=== PATIENT | female | born 1995 | race African-American/Black ===

== ENCOUNTER 2016-12-25 10:03 | Emergency (ER) | payer OTHER ==
[~2016-12-25] VITALS: Ht 160 cm; Wt 84.0 kg
[~2016-12-25 10:03] MED LIST: ELITE OB DHA S1 EACH PO; IBUPROFEN800 MG PO; KEFLEX500 MG PO; MACROBID100 MG PO; NOHOMEMEDS; PEPCID20 MG PO; PROVENTIL HFA6.7 GM IH; PYRIDIUM100 MG PO
[2016-12-25] MEDS ORDERED: ATARAX,VISTARIL25 MG PO (11:49)
[2016-12-25] MEDS ORDERED: INDOCIN50 MG PO (11:49)
[2016-12-25 12:07] VITALS: BP 117/71
== END 2016-12-25 12:09 | disposition home or self-care (01) ==
LOC: EME 10:03
DX: R07.89 Other chest pain (principal); F41.9 Anxiety disorder, unspecified; Z86.14 Personal history of Methicillin resistant Staphylococcus aureus infection
CPT/HCPCS: 71020; 93005; 99281; 99284

== ENCOUNTER 2017-01-03 09:37 | Emergency (ER) | payer OTHER ==
[~2017-01-03] VITALS: Ht 160 cm; Wt 87.4 kg
[~2017-01-03 09:37] MED LIST changes: +ATARAX,VISTARIL25 MG PO; +INDOCIN50 MG PO
[2017-01-03 10:09] LABS: HEMATOCRIT 40.8 % (36.0-46.0); MCH 30.7 PG (29.0-34.0); MCHC 32.8 G/DL (30.0-36.0); MCV 93.4 FL (83-99); PLATELET COUNT 316 K/uL (156-360); RBC DIS.WIDTH-CV 12.2 % (11.8-14.6); RED BLOOD COUNT 4.37 M/uL (3.80-5.20); WHITE BLOOD COUNT 5.4 K/uL (4.1-10.2)
[2017-01-03 10:10] LABS: ADD MIUA? YES; BILIRUBIN NEGATIVE; BLOOD NEGATIVE; COLOR YELLOW ((YELLOW)); GLUCOSE (STRIP) NEGATIVE; KETONES NEGATIVE; LEUKOCYTES NEGATIVE; NITRITE NEGATIVE; PROTEIN (STRIP) 30; SPECIFIC GRAVITY 1.026 (1.000-1.030); UROBILINOGEN 0.2 MG/DL (0.2-1.0)
[2017-01-03 10:21] LABS: CHLORIDE 106 mEq/L (99-109); POTASSIUM 4.3 mEq/L (3.7-5.4); SODIUM 139 mEq/L (136-147)
[2017-01-03 10:23] LABS: GLUCOSE 103 mg/dL (70-99)
[2017-01-03 10:24] LABS: ANION GAP 7 MEQ/L (2-14)
[2017-01-03 10:25] LABS: TOTAL BILIRUBIN 0.6 mg/dL (0.0-1.0)
[2017-01-03 10:27] LABS: ALKALINE PHOSPHATASE 60 IU/L (3-129); GFR ESTIMATE (CALCULATED) > 59 mL/min/
[2017-01-03 10:28] LABS: UREA NITROGEN (BUN) 10 mg/dL (9-23)
[2017-01-03 10:29] LABS: BACTERIA 2+ /HPF; CASTS NONE SEEN /LPF; CRYSTALS NONE SEEN; EPITHELIAL CELLS 1+ /HPF; MUCUS NONE SEEN /LPF; RED BLOOD CELLS NONE SEEN /HPF (0-5); UCUL ADDED? NO; WHITE BLOOD CELLS 0-5 /HPF (0-5)
[2017-01-03 10:38] LABS: QUANTITATIVE HCG < 4.0 MIU/ML
[2017-01-03] MEDS ORDERED: KEFLEX500 MG PO (13:45)
[2017-01-03] MEDS ORDERED: MOTRIN600 MG PO (13:45)
[2017-01-03 13:55] VITALS: BP 108/74
== END 2017-01-03 13:55 | disposition home or self-care (01) ==
LOC: EME 09:37
DX: N30.00 Acute cystitis without hematuria (principal); Z86.14 Personal history of Methicillin resistant Staphylococcus aureus infection
CPT/HCPCS: 76856; 80053; 81003; 84702; 85027; 87086; 99281; 99283